=== PATIENT | female | born 1990 | race Caucasian/White ===

== ENCOUNTER 2019-01-07 00:10 | Emergency (ER) | payer OTHER ==
[2019-01-07 02:14] LABS: ADD MAN DIFF? NO
[2019-01-07] MEDS: ACETAMINOPHEN 500 MG TAB PO (02:16)
[2019-01-07] MEDS: CYCLOBENZAPRINE 10 MG TAB PO (02:16)
[2019-01-07 02:39] LABS: WHITE BLOOD COUNT 9.4 10^3/ul (4.8-10.8)
[2019-01-07 02:39] LABS: BASOPHILS % 0.4 % (0.0-2.0); EOSINOPHILS # 0.2 10^3/ul (0.0-0.5); EOSINOPHILS % 1.6 % (0.0-7.0); HEMATOCRIT 39.3 % (37.0-47.0); HEMOGLOBIN 12.3 g/dl (12.0-16.0); LYMPHOCYTES # 3.1 10^3/ul (0.8-2.9); LYMPHOCYTES % 32.4 % (15.0-51.0); MEAN CORPUSCULAR HEMOGLOBIN 28.5 pg (29.0-33.0); MEAN CORPUSCULAR HGB CONC 31.3 g/dl (32.0-37.0); MEAN CORPUSCULAR VOLUME 91.2 fl (82.0-101.0); MEAN PLATELET VOLUME 11.2 fl (7.4-10.4); MONOCYTE # 0.7 10^3/ul (0.3-0.9); NEUTROPHIL # 5.5 10^3/ul (1.6-7.5); NEUTROPHILS % 58.2 % (39.0-77.0); PLATELET COUNT 286 10^3/UL (140-415); RED BLOOD COUNT 4.31 10^6/ul (4.20-5.40); RED CELL DISTRIBUTION WIDTH 13.4 % (11.5-14.5)
[2019-01-07 02:44] LABS: ANION GAP 11 (5-13); BLOOD UREA NITROGEN 22 mg/dl (7-20); CALCIUM 9.9 mg/dl (8.4-10.2); CARBON DIOXIDE 27 mmol/L (21-31); CHLORIDE 103 mmol/L (97-110); CREATININE 0.69 mg/dl (0.44-1.00); Estimated GFR > 60 mL/min (>60); GLUCOSE 98 mg/dl (70-220); POTASSIUM 4.1 mmol/L (3.5-5.1); SODIUM 141 mmol/L (135-144)
[2019-01-07 02:48] LABS: PLATELET COUNT 286 10^3/UL (140-415)
[2019-01-07] MEDS ORDERED: IOHEXOL 300MG/ML 150 ML BTL (02:58)
[2019-01-07] MEDS ORDERED: SOD CHLORIDE 0.9% 100 ML (02:58)
[2019-01-07 03:01] LABS: INR 0.99; PROTIME 13.2 Sec (11.9-14.9)
[2019-01-07 03:02] LABS: PARTIAL THROMBOPLASTIN TIME 32.1 Sec (23.0-35.0); THROMBIN TIME 16.2 SEC (13.8-19.1)
== END 2019-01-07 04:26 | disposition home or self-care (01) ==
LOC: FTE 00:10
DX: R10.31 Right lower quadrant pain (principal); R10.32 Left lower quadrant pain
CPT/HCPCS: 74177; 80048; 81025; 84703; 85025; 85049; 85610; 85670; 85730; 99284-25